=== PATIENT | female | born 1945 | race Caucasian/White ===

== ENCOUNTER 2021-01-14 13:33 | Emergency (ER) | payer OTHER, MEDICAID ==
[~2021-01-14] VITALS: Ht 154.9 cm; Wt 81.6 kg
[2021-01-14 13:35] VITALS: BP 174/81
[2021-01-14] MEDS ORDERED: HYDROcodone-ACET 5/325MG TAB PO ONE (17:15)
== END 2021-01-14 18:31 | disposition home or self-care (01) ==
LOC: ER 13:33
DX: S52.571A Other intraarticular fracture of lower end of right radius, initial encounter for closed fracture (principal); R51.9 Headache, unspecified; E78.5 Hyperlipidemia, unspecified; I10 Essential (primary) hypertension; K21.9 Gastro-esophageal reflux disease without esophagitis; Z86.73 Personal history of transient ischemic attack (TIA), and cerebral infarction without residual deficits; W01.198A Fall on same level from slipping, tripping and stumbling with subsequent striking against other object, initial encounter; Y93.89 Activity, other specified; Y92.89 Other specified places as the place of occurrence of the external cause; Y99.8 Other external cause status
CPT/HCPCS: 29125; 70450; 73110